=== PATIENT | male | born 1965 | race American Indian/Alaskan Native ===

== ENCOUNTER 2017-04-01 19:37 | Emergency (ER) | payer BC ==
[2017-04-01 20:26] VITALS: BP 128/78
--- NOTE | 2017-04-01 23:01 | XRay Report ---
FINAL REPORT PROCEDURE: XR FOOT 2V RT TECHNIQUE: RIGHT foot radiographs, AP and lateral views. HISTORY: swelling and red/painful right foot COMPARISON: No prior studies are available for comparison. FINDINGS: Fracture (s) and/or Dislocation(s): None . Alignment: Normal. Joint space(s): Normal. Soft tissues: Normal. Bone mineralization: Normal. Foreign bodies: None. Calcaneal spurring: None. IMPRESSION: Normal Examination.
[2017-04-01] MEDS ORDERED: TYLENOL PO ONE (23:27)
[2017-04-01] MEDS ORDERED: MOTRIN PO ONE ×2 (23:27→23:28)
[2017-04-01] MEDS ORDERED: TYLENOL ONE (23:28)
--- NOTE | 2017-04-02 00:07 | Emergency Department Report ---
ED Lower Extremity HPI - General Chief Complaint: Extremity Injury, Lower Stated Complaint: R FOOT PAIN/EDEMA Time Seen by Provider: 04/01/17 23:35 Source: patient, RN notes reviewed Mode of arrival: Ambulatory Limitations: No Limitations - History of Present Illness Initial Comments: This is a 51-year-old male. He is previously unknown to me. He denies chronic medical conditions. He presents to the ER with right great toe pain and right lateral foot pain for the past 3-4 days. The pain is not associated with trauma. It does not radiate anywhere. It is sharp and achy. It increases with palpation and range of motion. It decreases with rest. MD Complaint: foot injury, other -: Gradual Injury: Toes: Right Type of Injury: unknown Place: home Severity: mild Improves With: rest Worsens With: weight bearing, movement, palpation - Related Data Previous Rx's Medication Instructions Recorded Last Taken Type Ibuprofen [Motrin] 600 mg PO Q8H PRN #30 tablet 09/05/15 Unknown Rx traMADol [Ultram 50 MG tab] 50 mg PO Q6HR PRN #20 tablet 09/05/15 Unknown Rx Ibuprofen [Motrin] 600 mg PO Q8H PRN #30 tablet 04/02/17 Unknown Rx Allergies Allergy/AdvReac Type Severity Reaction Status Date / Time No Known Allergies Allergy Verified 09/05/15 21:29 ED Review of Systems ROS: Stated complaint: R FOOT PAIN/EDEMA Other details as noted in HPI Constitutional: denies: fever Eyes: denies: eye discharge ENT: denies: epistaxis Respiratory: denies: cough Cardiovascular: denies: chest pain, palpitations Gastrointestinal: denies: abdominal pain Musculoskeletal: arthralgia, myalgia Skin: denies: lesions Neurological: denies: weakness ED Past Medical Hx - Past Medical History Additional medical history: weak bladder - Surgical History Additional Surgical History: finger amputation 1979. hemorrhoid sx- 1989 - Social History Smoking Status: Never Smoker Substance Use Type: Alcohol - Medications Home Medications: Home Medications Medication Instructions Recorded Confirmed Last Taken Type Ibuprofen [Motrin] 600 mg PO Q8H PRN #30 tablet 09/05/15 Unknown Rx traMADol [Ultram 50 MG tab] 50 mg PO Q6HR PRN #20 tablet 09/05/15 Unknown Rx Ibuprofen [Motrin] 600 mg PO Q8H PRN #30 tablet 04/02/17 Unknown Rx ED Physical Exam - General Limitations: No Limitations General appearance: alert, in no apparent distress - Head Head exam: Present: atraumatic, normocephalic - Eye Eye exam: Present: normal appearance, EOMI. Absent: nystagmus - ENT ENT exam: Present: normal exam, normal orophraynx, mucous membranes moist, normal external ear exam - Neck Neck exam: Present: normal inspection, full ROM. Absent: tenderness, meningismus - Respiratory Respiratory exam: Present: normal lung sounds bilaterally. Absent: respiratory distress, wheezes, rales, rhonchi, stridor, chest wall tenderness - Cardiovascular Cardiovascular Exam: Present: regular rate, normal rhythm, normal heart sounds. Absent: systolic murmur, diastolic murmur, rubs, gallop - GI/Abdominal GI/Abdominal exam: Present: soft, normal bowel sounds. Absent: distended, tenderness, guarding, rebound, rigid, pulsatile mass - Rectal Rectal exam: Present: deferred - Extremities Exam Extremities exam: Present: normal inspection, full ROM, tenderness (the right toe is tender. There is no redness. There is minimal warmth. There is no streaking, pus or crepitus. The compartments are soft. 2+ pulses noted in the bilateral upper and lower extremities.), normal capillary refill. Absent: pedal edema, joint swelling, calf tenderness - Back Exam Back exam: Present: normal inspection, full ROM. Absent: tenderness, CVA tenderness (R), CVA tenderness (L), muscle spasm, paraspinal tenderness, vertebral tenderness - Neurological Exam Neurological exam: Present: alert, oriented X3, normal gait, other (Extraocular movements intact. Tongue midline. No facial droop. Facial sensation intact to light touch in the V1, V2, V3 distribution bilaterally. 5 and 5 strength in 4 extremities.. Sensation is intact to light touch in 4 extremities.). Absent : motor sensory deficit - Psychiatric Psychiatric exam: Present: normal affect, normal mood - Skin Skin exam: Present: warm, dry, intact, normal color. Absent: rash ED Course Vital Signs 04/01/17 04/02/17 20:22 00:10 Temperature 98.8 F 98.8 F Pulse Rate 80 80 Respiratory 18 17 Rate Blood Pressure 128/78 Blood Pressure 128/78 [Left] O2 Sat by Pulse 100 100 Oximetry ED Lower Extremity MDM - Radiology Data Radiology results: report reviewed, image reviewed X-ray of the right foot demonstrates no fracture or dislocation. - Medical Decision Making Differential diagnosis: Arthritis, fracture, gout Assessment and plan: 51-year-old male with right great toe pain, minimal warmth. He is afebrile with reassuring vital signs, walks with a steady gait. Presented more than 72 hours after symptom onset, therefore not a colchicine candidate. [place] somewhat improved after NSAID therapy. Vital Signs 04/01/17 04/02/17 20:22 00:10 Temperature 98.8 F 98.8 F Pulse Rate 80 80 Respiratory 18 17 Rate Blood Pressure 128/78 Blood Pressure 128/78 [Left] O2 Sat by Pulse 100 100 Oximetry Critical care attestation.: If time is entered above; I have spent that time in minutes in the direct care of this critically ill patient, excluding procedure time. ED Disposition Clinical Impression: Right foot pain Disposition: DC-01 TO HOME OR SELFCARE Is pt being admited?: No Does the pt Need Aspirin: No Condition: Stable Instructions: Acute Gouty Arthritis (ED) Additional Instructions: Rest and avoid heavy lifting. Avoid strenuous physical activity. Avoid consumption of red meat, spicy foods, heavy foods. 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 Return to the ER right away with new pain, worsened pain, migration of pain, fevers, chills, redness, streaking, confusion, inability to tolerate liquid feeds. Prescriptions: Ibuprofen [Motrin] 600 mg PO Q8H PRN #30 tablet PRN Reason: Pain Referrals: COLLINS MAHONEY MD [Primary Care Provider] - 3-5 Days JUAN MTZ MD [Staff Physician] - 3-5 Days ALCON BURNETT MD [Staff Physician] - 3-5 Days
== END 2017-04-02 00:10 | disposition home or self-care (01) ==
LOC: ED 19:37
DX: M79.671 Pain in right foot (principal)
CPT/HCPCS: 99283